=== PATIENT | male | born 1945 | race Caucasian/White ===

== ENCOUNTER → 2017-08-25 | Outpatient (CLI) | payer MEDICARE, BC ==
[~2017-08-25] MED LIST: ALLO100T PO; CIPR0.3S EACH EAR; COLC1TAB15 PO; GABA300C5 PO; GLIM2TAB PO; LISI-515 PO; METF1000 PO; PIOG30TA4 PO; ROSU5 PO; TIZA4TAB PO
[2017-08-25 11:15] LABS: HEMATOCRIT 42.2 % (39.0-51.0); MEAN CELL VOLUME 96.3 FL (80.0-100.0); MEAN CORPUSCULAR HGB CONC 33.2 % (32.0-36.0); MEAN PLATELET VOLUME 8.2 FL (7.0-11.0); PLATELET COUNT 244 TH/MM3 (150-450); RED BLOOD COUNT 4.38 MIL/MM3 (4.50-5.90); WHITE BLOOD COUNT 6.3 TH/MM3 (4.0-11.0)
[2017-08-25 11:36] LABS: BACTERIA, URINE MANY /hpf; BILIRUBIN, URINE NEG (NEG); BLOOD, URINE SMALL (NEG); GLUCOSE,URINE NEG (NEG); HYALINE CAST, URINE 4 /lpf (RARE); KETONE, URINE NEG (NEG); MUCUS URINE FEW /lpf (OCC); NITRITE,URINE POS (NEG); SQUAMOUS EPITHELIAL CELL URINE <1 /hpf (0-5); URINE COLOR YELLOW (YELLW/STRAW); URINE LEUKOCYTE ESTERASE LARGE (NEG); WHITE BLOOD CELL CLUMPS RARE
[2017-08-25 12:31] LABS: ALBUMIN 3.9 GM/DL (3.4-5.0); AST (GOT) 35 U/L (15-37); BICARBONATE 24.2 MEQ/L (21.0-32.0); CALCIUM 9.4 MG/DL (8.5-10.1); CHLORIDE 102 MEQ/L (98-107); CHOLESTEROL 131 MG/DL (120-200); GLOMERULAR FILTRATION RATE 60 ML/MIN (>89); SODIUM (NA) 140 MEQ/L (136-145)
[2017-08-25 12:37] LABS: ALKALINE PHOSPHATASE 81 U/L (45-117); BLOOD UREA NITROGEN 25 MG/DL (7-18); CHOLESTEROL/ HDL RATIO 2.78 RATIO; GLUCOSE,FASTING 148 MG/DL (74-99); LDL CHOLESTEROL 53 MG/DL (0-99); TRIGLYCERIDES 154 MG/DL (42-150)
[2017-08-25 12:41] LABS: ALT (GPT) 38 U/L (12-78); TOTAL BILIRUBIN ADULT 0.5 MG/DL (0.2-1.0); TOTAL PROTEIN 8.2 GM/DL (6.4-8.2)
== END ==
LOC: CLAB 10:10
PROVIDERS: ATTEND Hospitalist
DX: Z86.13 Personal history of malaria (principal); R82.90 Unspecified abnormal findings in urine; Z13.6 Encounter for screening for cardiovascular disorders
CPT/HCPCS: 36415; 80053; 80061; 81001; 85027; 87077; 87086; 87186